=== PATIENT | female | born 1955 | race Caucasian/White ===

== ENCOUNTER 2019-08-22 12:05 | Day surgery (SDC) | payer BC ==
[~2019-08-22] VITALS: Ht 154.9 cm; Wt 52.8 kg
[~2019-08-22 12:05] MED LIST: CHOL10002; CRANBERRY250 MG PO; Estradiol1 MG PO; Hair, Skin & N1 EACH; LEVSOD88 PO; NAPR500 PO
[2019-08-22] MEDS ORDERED: UBID10 (13:34)
--- NOTE | 2019-08-22 13:56 | NUR ---
08/22/19 1356 [address] [place] PATIENT DETERMINED TO BE ASA APPROPRIATE FOR PROPOFOL SEDATION PRIOR TO START OF PROCEDURE BY . 3-LEAD EKG REVIEWED WITH PHYSICIAN PRIOR TO START OF PROCEDURE.PATIENT CONFIRMS NPO STATUS AND AGREES WITH SCHEDULED PROCEDURE.History, Chart, Medications and Allergies reviewed before start of procedure.MONITOR INTACT WITH CONTINUOUS PULSE OXIMETRY AND INTERMITTENT BP.O2 VIA N/C INTACT THROUGHOUT SEDATION/PROCEDURE.
--- NOTE | 2019-08-22 14:40 | NUR ---
"DAY SURGERY RN | DISCHARGE VSS. A/O. DENIES NAUSEA/PAIN. NO ISSUES. STEADY ON FEET. TAKEN IN WHEELCHAIR TO FRONT ENTRANCE FOR RIDE HOME, DISCHARGE INSTRUCTIONS GIVEN."
== END 2019-08-22 23:45 | disposition home or self-care (01) ==
LOC: ORSCMMR 12:05 → ORD 13:15 → ORSCMMR 13:45
PROVIDERS: Internal Medicine Gastroenterology
PROC: 0DJD8ZZ Inspection of Lower Intestinal Tract, Via Natural or Artificial Opening Endoscopic (ICD-10-PCS; principal; 2019-08-22 13:45)
DX: Z12.11 Encounter for screening for malignant neoplasm of colon (principal); K57.30 Diverticulosis of large intestine without perforation or abscess without bleeding; E03.9 Hypothyroidism, unspecified; Z79.899 Other long term (current) drug therapy
CPT/HCPCS: J2704; J7120

== ENCOUNTER → 2022-09-13 | Outpatient (CLI) | payer MEDICARE ==
[~2022-09-13] MED LIST changes: +UBID10
== END | disposition home or self-care (01) ==
LOC: LAB 08:06 → LAB SHORT 08:06
DX: C44.519 Basal cell carcinoma of skin of other part of trunk (principal)
CPT/HCPCS: 88305

== ENCOUNTER → 2022-10-10 | Outpatient (CLI) | payer MEDICARE | END | disposition home or self-care (01) | LOC: LAB 07:49 → LAB SHORT 07:49 → PLD 07:49 | DX: C44.519 Basal cell carcinoma of skin of other part of trunk (principal) | CPT/HCPCS: 88305 ==